=== PATIENT | female | born 1995 ===

== ENCOUNTER 2016-10-21 13:13 | Emergency (ER) | END 2016-10-21 14:49 | disposition left against medical advice (07) | LOC: UCCORT 13:13 | DX: J02.9 Acute pharyngitis, unspecified (principal); Z53.21 Procedure and treatment not carried out due to patient leaving prior to being seen by health care provider ==

== ENCOUNTER 2016-10-28 12:44 | Emergency (ER) | payer BC ==
[2016-10-28 14:51] VITALS: BP 140/69
--- NOTE | 2016-10-28 15:00 | UC ---
Respiratory Complaint HPI - HPI Summary HPI Summary: Cough for 5 weeks; pt finished [employer] 2 days ago yet cough continues, occasional wheeze. Was Dx with bronchitis recently. No fever no productive cough. Annoying cough when she laughs or exerts herself [ End ] - History of Current Complaint Chief Complaint: UCRespiratory Stated Complaint: COUGH Time Seen by Provider: 10/28/16 14:54 Hx Obtained From: Patient Hx Last Menstrual Period: 09/25 ?: No Onset/Duration: Gradual Onset Severity Currently: Mild Character: Cough: Nonproductive Alleviating Factors: Nothing - Risk Factors Pulmonary Embolism Risk Factors: Negative Cardiac Risk Factors: Negative Pseudomonas Risk Factors: Negative Tuberculosis Risk Factors: Negative - Allergies/Home Medications Allergies/Adverse Reactions: Allergies Allergy/AdvReac Type Severity Reaction Status Date / Time Cefaclor [From [facility]] Allergy Hives Verified 10/28/16 14:51 Home Medications: Home Medications Azithromycin TAB* [Zithromax TAB (Z-FUENTES) 250 mg #6 tabs] 250 mg PO DAILY [History Confirmed 10/28/16] Aileen Iud 1 unit IU DAILY 10/28/16 [History] PMH/Surg Hx/FS Hx/Imm Hx Previously Healthy: Yes Endocrine History Of: Denies: Diabetes, Thyroid Disease, Hyperthyroidism, Hypothyroidism, Dyslipidemia Cardiovascular History Of: Denies: Cardiac Disorders, Hypertension Respiratory History Of: Denies: COPD GI/ History Of: Denies: Ulcer Neurological History Of: Denies: CVA - Surgical History Surgical History: Yes Surgery Procedure, Year, and Place: wisdom teeth 2014 - Family History Known Family History: Positive: None - Social History Occupation: Employed Full-time Alcohol Use: Occasionally Substance Use Type: None Smoking Status (MU): Never Smoked Tobacco Review of Systems Constitutional: Fatigue Skin: Negative Eyes: Negative ENT: Negative Respiratory: Cough Cardiovascular: Negative Gastrointestinal: Negative Genitourinary: Negative Motor: Negative Neurovascular: Negative Musculoskeletal: Negative Neurological: Negative Psychological: Negative All Other Systems Reviewed And Are Negative: Yes Physical Exam Triage Information Reviewed: Yes Appearance: Well-Appearing, No Pain Distress, Well-Nourished Vital Signs: Initial Vital Signs Pulse 66 10/28/16 14:44 Resp 20 10/28/16 14:44 BP 140/69 10/28/16 14:44 Pulse Ox 99 10/28/16 14:44 Vital Signs Reviewed: Yes Eye Exam: Normal ENT Exam: Normal Dental Exam: Normal Neck exam: Normal Neck: Positive: 1 Respiratory Exam: Normal Cardiovascular Exam: Normal Abdominal Exam: Normal Musculoskeletal Exam: Normal Neurological Exam: Normal Psychological Exam: Normal Skin Exam: Normal UC Diagnostic Evaluation - Laboratory O2 Sat by Pulse Oximetry: 99 Respiratory Course/Dx - Differential Dx/Diagnosis Provider Diagnoses: Cough from URI Discharge - Discharge Plan Condition: Good Disposition: HOME Prescriptions: Benzonatate 200 mg PO TID PRN #20 cap PRN Reason: Cough Patient Education Materials: Upper Respiratory Infection (ED) Additional Instructions: As we discussed your cough could persist another few weeks. It is common for bronchitis to have a cough similar to yours. If your symptoms worsen then please seek medical attention. Consider over the counter antihistamines as well
== END 2016-10-28 15:19 | disposition home or self-care (01) ==
LOC: MERGE 12:44 → UCCORT 12:44
DX: J06.9 Acute upper respiratory infection, unspecified (principal); R05 Cough; R53.83 Other fatigue; Z88.1 Allergy status to other antibiotic agents
CPT/HCPCS: 99202; G0463

== ENCOUNTER 2017-08-07 09:42 | Emergency (ER) | payer BC ==
[2017-08-07 12:02] VITALS: BP 114/62
--- NOTE | 2017-08-07 12:07 | UC ---
Complaint Female HPI - HPI Summary HPI Summary: 21 y/o female presents to the urgent care c/o burning and frequency on urination since last Monday08/04/2017. Pt reports she took Azo yesterday and this morning to alleviate symptoms. Pain is 8/10 with urination. She had similar symptoms over the summer and was Dx with UTI. Pt denies fever, pelvis pain, lower back pain, vaginal discharge, abdominal pain, N/V/D. LMP: 07/31/2017 on Aileen. - History Of Current Complaint Chief Complaint: UCGU Stated Complaint: URINARY COMPLAINT Time Seen by Provider: 08/07/17 12:05 Hx Obtained From: Patient Hx Last Menstrual Period: Aileen, 07/31/17 ?: No Onset/Duration: Gradual Onset, Lasting Days - 4 days, Still Present Timing: Intermittent, Lasting Seconds Severity Initially: Mild Severity Currently: Moderate Pain Intensity: 8 Pain Scale Used: 0-10 Numeric Character: Burning Aggravating Factor(s): Urination Alleviating Factor(s): Meds - azo Associated Signs And Symptoms: Positive: Negative. Negative: Fever, Back Pain, Vaginal Discharge - Risk Factors Ectopic Risk Factor: Negative Ovarian Torsion Risk Factor: Negative - Allergies/Home Medications Allergies/Adverse Reactions: Allergies Allergy/AdvReac Type Severity Reaction Status Date / Time Cefaclor [From [facility]] Allergy Hives Verified 08/07/17 12:02 PMH/Surg Hx/FS Hx/Imm Hx Previously Healthy: Yes - Pt denies PMHX - Surgical History Surgical History: Yes Surgery Procedure, Year, and Place: wisdom teeth 2014 - Family History Known Family History: Positive: Hypertension - Social History Occupation: Student Lives: With Family Alcohol Use: Occasionally Substance Use Type: None Smoking Status (MU): Never Smoked Tobacco Review of Systems Constitutional: Negative Skin: Negative Eyes: Negative ENT: Negative Respiratory: Negative Cardiovascular: Negative Gastrointestinal: Negative Genitourinary: Dysuria, Frequency, Urgency Motor: Negative Neurovascular: Negative Musculoskeletal: Negative Neurological: Negative Psychological: Negative Is Patient Immunocompromised?: No All Other Systems Reviewed And Are Negative: Yes Physical Exam Triage Information Reviewed: Yes Vital Signs: Initial Vital Signs Temp 97.1 F 08/07/17 11:57 Pulse 85 08/07/17 11:57 Resp 14 08/07/17 11:57 BP 114/62 08/07/17 11:57 - Additional Comments VITAL SIGNS: Reviewed. GENERAL: Patient is a well developed and nourished female who is sitting comfortable in the examining table. Patient is not in any acute respiratory distress. HEAD AND FACE: No signs of trauma. No ecchymosis, hematomas or skull depressions. No sinus tenderness. edematous erythematous nasal mucosa with yellowish discharge, EYES: PERRLA, EOMI x 2, No injected conjunctiva, clear watery eyes, no nystagmus. No photophobia. EARS: Hearing grossly intact. Ear canals and tympanic membranes are within normal limits. MOUTH: pharynx with no erythema, no exudates,no palatal petechiae. no B/L tonsillar enlargement Uvula in midline. NECK: Supple, trachea is midline, no lymphadenopathy, no JVD, no carotid bruit, no c-spine tenderness, neck with full ROM. CHEST: Symmetric, no tenderness at palpation LUNGS: Clear to auscultation bilaterally. No wheezing or crackles. CVS: Regular rate and rhythm, S1 and S2 present, no murmurs or gallops appreciated. ABDOMEN: Soft, non-tender. No signs of distention. No rebound no guarding, and no masses palpated. Bowel sounds are normal. BACK:no scoliosis or lesions, non tender to palaption, No B/L CVA tenderness EXTREMITIES: FROM in all major joints, no edema, no cyanosis or clubbing. NEURO: Alert and oriented x 3. No acute neurological deficits. Speech is normal and follows commands. SKIN: Dry and warm Complaint Female Dx - Course Course Of Treatment: 21 y/o female presents to the urgent care c/o burning and frequency on urination since last Monday08/04/2017. Pt reports she took Azo yesterday and this morning to alleviate symptoms. Pain is 8/10 with urination. She had similar symptoms over the summer and was Dx with UTI. Pt denies fever, pelvis pain, lower back pain, vaginal discharge, abdominal pain, N/V/D. LMP: 07/31/2017 on Aileen.Hx obtained.PE: WNL. Pt took azo, unable to perform UA, Urine sent for culture. Pt will be Tx due to dysuria. Rx Macrobid 100mg PO x 5 days. Pyridium 100mg PO TID x 2 days. Advised to increase fluid intake. if any abnormality Pt will be notified for further treatment. Pt advised If symptoms do not improve to return to the urgent care or f/u with PCP. Pt understood and agreed. Left the clinic ambulating. - Differential Dx/Diagnosis Differential Diagnosis/HQI/PQRI: Cervicitis, Pelvic Inflammatory Disease, Renal Colic, Sexually Transmitted Disease, Ureteral Stone, Urinary Tract Infection Provider Diagnoses: 1- UTI. 2-Dysuria Discharge - Discharge Plan Condition: Stable Disposition: HOME Prescriptions: Nitrofurantoin Monohyd Macro [Macrobid] 100 mg PO BID #10 cap Phenazopyridine TAB* [Pyridium 100 mg TAB*] 100 mg PO TID #6 tab Patient Education Materials: Urinary Tract Infection in Women (ED) Referrals: [facility] [Outside] Non Staff,Doctor [Primary Care Provider] - Additional Instructions: 1- Please take Macrobid 100mg PO x 7 days. Pyridium 100 mg PO TID x 2 days to alleviate urinary symptoms. Increase increase fluid intake. drink cranberry juice. 2-Urine sent for culture if any abnormality, since unable to perform an UA. You will be notified for further treatment. 3-If symptoms do not improve please return to the urgent care or f/u with her PCP.
== END 2017-08-07 12:19 | disposition home or self-care (01) ==
LOC: UCCORT 09:42
DX: N39.0 Urinary tract infection, site not specified (principal); Z87.440 Personal history of urinary (tract) infections; Z88.1 Allergy status to other antibiotic agents
CPT/HCPCS: 87086; 99212; G0463